=== PATIENT | male | born 1955 | race Caucasian/White ===

== ENCOUNTER 2023-11-09 09:03 | Day surgery (SDC) | payer MEDICARE, OTHER ==
[~2023-11-09] VITALS: Ht 167.6 cm; Wt 61.9 kg
[~2023-11-09 09:03] MED LIST: LR 1,000 ML IV SCH
[2023-11-09 09:47] VITALS: BP 95/71; PULSE 59; TEMP 97.4
[2023-11-09] MEDS ORDERED: fentaNYL 50 MCG/ML 2 ML VIAL ONE (10:37)
[2023-11-09] MEDS ORDERED: Rocuronium 50 MG/5 ML Multi-Dose VIAL ONE (10:37)
[2023-11-09] MEDS ORDERED: Ondansetron 4 MG/2 ML VIAL ONE (10:39)
[2023-11-09] MEDS ORDERED: Ketorolac 30 MG/ML VIAL ONE (10:39)
[2023-11-09] MEDS ORDERED: NS 10 ML IV ONE (10:39)
[2023-11-09] MEDS ORDERED: Glycopyrrolate 0.2 MG/ML 1 ML VIAL ONE (10:39)
[2023-11-09] MEDS ORDERED: Lidocaine PF 2% (20 MG/ML) 5 ML VIAL ONE (10:39)
[2023-11-09] MEDS ORDERED: dexAMETHasone 10 MG/ML VIAL ONE (10:39)
--- NOTE | 2023-11-09 10:41 | NUR ---
PATIENT WAS ADMITTED TO ROOM 2 AMBULATORY ACCOMPANIED BY SPOUSE. VOICES UNDERSTANDING OF SURGERY AND CONSENT SIGNED. IV STARTED AND AWAITS SURGERY.
[2023-11-09] MEDS ORDERED: droPERidol 2.5 MG/ML 2 ML VIAL IV PRN (10:45)
[2023-11-09] MEDS ORDERED: HYDROmorphone 1 MG/1 ML SYRINGE [PACU/SDC ONLY] IV PRN (10:45)
[2023-11-09] MEDS ORDERED: fentaNYL 50 MCG/ML 1 ML SYRINGE/VIAL [PACU/SDC ONLY] IV PRN (10:45)
[2023-11-09] MEDS ORDERED: Morphine 2 MG/1 ML VIAL [PACU/SDC ONLY] IV PRN (10:45)
[2023-11-09] MEDS ORDERED: hydrALAZINE 20 MG/ML 1 ML VIAL IV PRN (10:45)
[2023-11-09] MEDS ORDERED: Ondansetron 4 MG/2 ML VIAL IV PRN ×2 (10:45→13:45)
[2023-11-09] MEDS ORDERED: ePHEDrine 50 MG/ML VIAL ONE (12:47)
[2023-11-09] MEDS ORDERED: NORCO 325 MG-51 TAB PO (13:37)
[2023-11-09] MEDS ORDERED: Ibuprofen 600 MG TAB PO PRN (13:45)
[2023-11-09] MEDS ORDERED: Acetaminophen 325 MG TAB PO PRN (13:45)
[2023-11-09 14:10] VITALS: BP 100/66; PULSE 62; TEMP 97.3
[2023-11-09 14:25] VITALS: BP 99/64; PULSE 58
--- NOTE | 2023-11-09 15:00 | NUR ---
1410-PT TO BAY 2 PER CART FROM PACU. REPORT RECEIVED. VS OBTAINED. CALL LIGHT WITHIN REACH. PT DENIES ANY NEEDS AT THIS TIME. 1415-PT TOLERATING WATER AND ICE CREAM. 1430-IV DC'D AT THIS TIME. 1435-PT ABLE TO DRESS SELF WITHOUT ASSISTANCE. 1445-DISCHARGE EDUCATION COMPLETED WITH PT AND HIS . VERBALIZED UNDERSTANDING OF HOME AND FOLLOW UP CARE. ALL QUESTIONS ANSWERED. DISCHARGE PAPERWORK GIVEN TO PT. 1500-PT OFF UNIT PER WHEELCHAIR. PT DISCHARGED TO HOME WITH HIS PER PERSONAL VEHICLE.
== END 2023-11-09 15:00 | disposition home or self-care (01) ==
LOC: SDCO 09:03
DX: K40.90 Unilateral inguinal hernia, without obstruction or gangrene, not specified as recurrent (principal); F17.220 Nicotine dependence, chewing tobacco, uncomplicated
CPT/HCPCS: C1781; J0665; J0690; J1100; J1885; J2405; J2704; J3010; J7120